=== PATIENT | male | born 1955 | race Caucasian/White ===

== ENCOUNTER 2018-03-05 09:34 | Inpatient (IN) | payer OTHER ==
[~2018-03-05] VITALS: Ht 180.3 cm; Wt 88.2 kg
[~2018-03-05 09:34] MED LIST: LYRICA75 MG PO; PERCOCET 325 MG1 TA2 PO; PERCOCET 325 MG1 TAB PO; SILENOR3 MG PO
--- NOTE | 2018-03-05 09:57 | ED GI/GU/ABDOMINAL COMPLAINT ---
History of Present Illness General Chief Complaint: General Adult Stated Complaint: SIB DR NICK FOR GENERALIZED WEAKNESS, PAIN Source: patient, family Exam Limitations: no limitations Vital Signs & Intake/Output Vital Signs & Intake/Output Vital Signs Date Time Temp Pulse Resp B/P B/P Pulse O2 O2 Flow FiO2 Mean Ox Delivery Rate 03/05 1503 98.0 65 18 142/80 100 Room Air 03/05 1345 98.6 51 18 142/88 98 Room Air 03/05 1138 97.7 65 18 160/77 100 Room Air 03/05 1012 98 Room Air 03/05 0948 98.6 81 15 130/90 99 Room Air Room Air Allergies Coded Allergies: No Known Allergies (03/05/18) Reconcile Medications Amlodipine Besylate 5 MG TABLET 1 TAB PO QPM HEART (Reported) Atorvastatin Calcium 20 MG TABLET 1 TAB PO DAILY CHOLESTEROL (Reported) Gabapentin 300 MG CAPSULE 1 CAP PO QPM SLEEP (Reported) Metformin HCl 500 MG TABLET 2 TAB PO DAILY DIABETES (Reported) Metformin HCl 500 MG TABLET 1 TAB PO QPM DIABETES (Reported) Zolpidem Tartrate 10 MG TABLET 1 TAB PO QPM SLEEP (Reported) Triage Note: PT SENT TO ED BY DR. NICK FOR LLQ ABD PAIN THAT RADIATES UP ABD. PT NOTED TO BE UNCOMFORTABLE IN TRIAGE AND MOANING. REPORTS 15 DAILY EPISODES OF DIARRHEA SINCE MONDAY. REPORTS SOME NAUSEA/VOMITING. Triage Nurses Notes Reviewed? yes Onset: Gradual Duration: week(s): Timing: recent history Quality/Severity: severe Severity Numbers: 10 Location: left lower quadrant HPI: 62-year-old male with history of hypertension, diabetes sent in by primary care doctor for evaluation of abdominal pain. Patient reports one week history of severe left lower quadrant abdominal pain. Abdominal pain described as left lower quadrant, radiating towards periumbilical area, constant. Patient reports associated nausea with vomiting episodes a few days ago. He also reports nonbloody diarrhea, initially having 10-15 episodes of diarrhea per day however recently has had 1-2 episodes per day, last episode of diarrhea yesterday. Patient reports lack of appetite and diminished PO intact since symptoms began. He has no history of a similar pain in the past. Patient denies chest pain, dyspnea, fevers, chills. (Vickie IGLESIAS,Kelsi Reaves) Past History Travel History Traveled to [place] past 21 day No Medical History Any Pertinent Medical History? see below for history Neurological: NONE EENT: NONE Cardiovascular: hypertension, hyperlipidemia Respiratory: NONE Gastrointestinal: NONE Hepatic: NONE Renal: NONE Musculoskeletal: NONE Psychiatric: NONE Endocrine: TYPE II DM Tetanus Vaccine: 02/04/13 Surgical History Surgical History: hernia repair-inguinal (left) Psychosocial History What is your primary language Citizen Of [place] Tobacco Use: Quit >30 days ago Family History Hx Contributory? No (Kelsi Schulte) Review of Systems Review of Systems Constitutional: Reports: no symptoms. EENTM: Reports: no symptoms. Respiratory: Reports: no symptoms. Cardiovascular: Reports: no symptoms. GI: Reports: see HPI. Genitourinary: Reports: no symptoms. Musculoskeletal: Reports: no symptoms. Skin: Reports: no symptoms. Neurological/Psychological: Reports: no symptoms. Hematologic/Endocrine: Reports: no symptoms. Immunologic/Allergic: Reports: no symptoms. All Other Systems: Reviewed and Negative (Kelsi Schulte) Physical Exam Physical Exam General Appearance: well developed/nourished, no apparent distress, alert, awake Head: atraumatic, normal appearance Eyes: Bilateral: normal appearance. Ears, Nose, Throat, Mouth: hearing grossly normal Neck: normal inspection, supple, full range of motion Respiratory: normal breath sounds, no respiratory distress, lungs clear Cardiovascular: regular rate/rhythm Gastrointestinal: normal bowel sounds, soft, LLQ tenderness with gaurding Back: normal inspection, normal range of motion Extremities: normal range of motion Neurologic/Psych: awake, alert, oriented x 3 Skin: intact, normal color, warm/dry Core Measures ACS in differential dx? No Sepsis Present: No Sepsis Focused Exam Completed? No (Kelsi Schulte) Progress Differential Diagnosis: appendicitis, bowel obstruction, diverticulitis, hernia, ischemic bowel, peptic ulcer, perforated viscous, SBO, ureterolithiasis, UTI/ pyelo, abscess Plan of Care: Orders Procedure Date/time Status CBC WITHOUT DIFFERENTIAL 03/06 600 Active BASIC ELECTROLYTES PLUS BUN&CR 03/06 600 Active Clear Liquid Diet 03/05 D Active BASIC ELECTROLYTES PLUS BUN&CR 03/05 2000 Active Weight 03/05 1521 Active Teach/Educate 03/05 152 Active Pain Treatment and Response 03/05 152 Active Nutritional Intake, Monitor 03/05 152 Active Isolation 03/05 152 Active Patient Care Conference 03/05 1521 Active Pathway - chart 03/05 1357 Active House Staff 03/05 1357 Active Patient Data 03/05 1357 Active BASIC ELECTROLYTES PLUS BUN&CR 03/05 1357 Complete Code Status 03/05 1357 Active Patient Data 03/05 1243 Active OXYGEN SETUP (GEN) 03/05 1235 Active Saline Lock 03/05 1235 Active Admit to inpatient 03/05 1235 Active Vital Signs 03/05 1235 Active Activity/Ambulation 03/05 1235 Active Code Status 03/05 1235 Complete TROPONIN LEVEL 03/05 1230 Complete EKG 03/05 1230 Active BLOOD CULTURE 03/05 1207 Active Add-on Test (ER Only) 03/05 1153 Active Add-on Test (ER Only) 03/05 1032 Active URINALYSIS 03/05 1032 Complete LIPASE 03/05 1014 Complete LACTIC ACID 03/05 1014 Complete AMYLASE 03/05 1014 Complete Intake & Output 03/05 1012 Active TROPONIN LEVEL 03/05 0957 Complete COMPREHENSIVE METABOLIC PANEL 03/05 0957 Complete CBC WITHOUT DIFFERENTIAL 03/05 0957 Complete EKG 03/05 0957 Active Telemetry/[place] 03/05 UNK Active Nursing Misc 03/05 UNK Active FingerStick- Glucose 03/05 UNK Active Current Medications Sig/Ana Start time Last Medication Dose Stop Time Status Admin Amlodipine Besylate 5 MG QPM 08/ 2100 AC (Norvasc) Gabapentin 300 MG QPM / 2100 AC (Neurontin) Insulin Human Regular 0 AT BEDTIME 03/05 2100 AC (NovoLIN R) Zolpidem Tartrate 10 MG QPM 08/ 2100 AC (Ambien) Ampicillin Sodium/ 3,000 MG Q6 / 1800 AC Sulbactam Sodium (Unasyn) Sodium Chloride 100 ML (Normal Saline 0.9%) Atorvastatin Calcium 20 MG 1700 08 1700 AC (Lipitor) Insulin Human Regular 0 TIDAC 03/05 1700 AC (NovoLIN R) Hydromorphone HCl 1 MG Q4P PRN 03/05 1445 AC 03/05 (Dilaudid) 1451 Acetaminophen 500 MG Q6P PRN 03/05 1400 AC (Tylenol) Morphine Sulfate 4 MG Q4P PRN 08 1400 AC 03/05 (MORPHINE SULFATE) 1424 Sodium Chloride 1,000 ML .Q10H 03/05 1400 AC 03/05 (Normal Saline 0.9%) 1410 Enoxaparin Sodium 40 MG DAILY 03/05 1353 AC (Lovenox) Laboratory Tests 03/05/18 1459: Anion Gap 11, Estimated GFR > 60, BUN/Creatinine Ratio 15.7 03/05/18 1220: Troponin I 0.03 03/05/18 1142: Urine Color YEL, Urine Clarity CLEAR, Urine pH 6.5, Ur Specific Velpen <= 1.005 , Urine Protein NEG, Urine Ketones NEG, Urine Nitrite NEG, Urine Bilirubin NEG, Urine Urobilinogen 0.2, Ur Leukocyte Esterase NEG, Ur Microscopic EXAM NOT REQUIRED, Urine Hemoglobin NEG, Urine Glucose NEG 03/05/18 1014: Anion Gap 10, Estimated GFR > 60, BUN/Creatinine Ratio 13.3, Glucose 138 H, Lactic Acid 1.4, Calcium 8.6, Total Bilirubin 0.8, AST 18, ALT 41, Alkaline Phosphatase 81, Troponin I 0.02, Total Protein 6.5, Albumin 3.8, Globulin 2.7, Albumin/Globulin Ratio 1.4, Amylase 45, Lipase 503 H, CBC w Diff NO MAN DIFF REQ, RBC 4.96, MCV 86.6, MCH 28.9, MCHC 33.3, RDW 12.9, MPV 8.1, Gran % 75.1, Lymphocytes % 13.7 L, Monocytes % 9.7 H, Eosinophils % 1.3, Basophils % 0.2, Absolute Granulocytes 8.8 H, Absolute Lymphocytes 1.6, Absolute Monocytes 1.1 H, Absolute Eosinophils 0.2, Absolute Basophils 0 Microbiology 03/05 1235 BLOOD: Blood Culture - RECD 03/05 1220 BLOOD: Blood Culture - RECD The patient has nonspecific minimal ST depressions in lateral leads, slight change compared to previous EKG. Will re evaluated with repeat EKG and troponin in [address] scan and chemistry panel are pending. Labs show hypokalemia, patient medicated with IV and oral potassium. CT scan shows diverticulitis without other acute complication. Patient is not tolerating PO at home, he has electrolyte abnormality with EKG changes. This patient requires IV antibiotics, IV fluids, potassium replacement, telemetry monitoring, repeat EKGs and troponins. Dr. Jones spoke with Dr. Munoz regarding telemetry admission. Diagnostic Imaging: Viewed by Me: CT Scan. Discussed w/RAD: CT Scan. Radiology Impression: PATIENT: TIERRA STEVEN PRESENT AGE: 62 PATIENT ACCOUNT NO: [id number] : 55 LOCATION: [facility] ORDERING PHYSICIAN: Kelsi IGLESIAS SERVICE DATE: 03/05/18 EXAM TYPE: CAT - CT ABD & PELVIS W IV CONTRAST EXAMINATION: CT ABDOMEN AND PELVIS WITH CONTRAST CLINICAL INFORMATION: Left lower abdominal pain and diarrhea. COMPARISON: 08/11/2014 TECHNIQUE: Multidetector volumetric imaging was performed of the abdomen and pelvis following IV administration of 95 mL of Optiray 320 intravenous contrast. Sagittal and coronal reformatted images were obtained on the technologist's workstation. DLP: 491 mGy-cm FINDINGS: LUNG BASES: Atherosclerotic calcification of the visualized right coronary artery. No acute findings in the examined lung bases. No pericardial or pleural effusion. LIVER, GALLBLADDER, AND BILIARY TREE: Diffuse hepatic steatosis without focal lesion or intrahepatic bile duct dilatation. The gallbladder is normal; no radiopaque gallstones, wall thickening or pericholecystic inflammatory changes. No intrahepatic or extrahepatic bile duct dilatation. PANCREAS: [id number] atrophy and partial fatty replacement of the pancreas. No pancreatic ductal dilatation. Anterior to the pancreatic tail, there is mild fat stranding. No peripancreatic fluid collection. SPLEEN: Unremarkable. ADRENAL GLANDS: Unremarkable. KIDNEYS AND URETERS: The kidneys have normal size, shape, and attenuation. No hydroureteronephrosis, urolithiasis or perinephric stranding. BLADDER: Unremarkable. BOWEL AND PERITONEUM: Loops of bowel are normal in caliber. Appendix is normal. Pancolonic diverticulosis. Mild fat stranding is seen adjacent to a diverticulum of the sigmoid colon, consistent with mild diverticulitis. No abscess. ABDOMINAL WALL: No acute findings. Again noted is the fat-containing left inguinal hernia. LYMPH NODES: No pathologic sized lymph nodes in the abdomen or pelvis. No inguinal lymphadenopathy. VASCULAR: Atherosclerotic calcification of the abdominal aorta without aneurysm. Inferior vena cava is normal. PELVIC: Prostate gland is unremarkable. No pelvic mass or free fluid. MUSCULOSKELETAL: Mild dextroscoliosis of the chronically degenerated lumbar spine. 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 No aggressive osseous lesions. IMPRESSION: - Pancolonic diverticulosis. - Acute, mild diverticulitis of the sigmoid colon. - Mild fat stranding anterior to the pancreatic tail is a subtle finding requiring clinical and/or laboratory correlation. Mild pancreatitis confined to the pancreatic tail is possible (i.e. , low suspicion). - Diffuse hepatic steatosis. - Fat-containing left inguinal hernia is unchanged. DICTATED BY: Lopez Dominguez MD DATE/TIME DICTATED:03/05/181129 PASTING INSPECTOR:SENIA DATE/TIME TRANSCRIBED:03/05/181129 CONFIDENTIAL, DO NOT COPY WITHOUT APPROPRIATE AUTHORIZATION. <Electronically signed in Other Vendor System> SIGNED BY: Lopez Dominguez MD 03/05/18 1146 Initial ED EKG: sinus rhythm @71bpm, nonspecific ST changes Prior EKG: changed (08/11/14) (Kelsi Schulte) Departure Departure Disposition: STILL A PATIENT Condition: Stable Clinical Impression Primary Impression: Diverticulitis Secondary Impressions: Abdominal pain, Acute electrocardiogram changes, Hypokalemia Referrals: Joana MARINO,Austin Gilbert (PCP/Family) Departure Forms: Customer Survey General Discharge Information Admission Note Spoke With: Bia Munoz MD Documentation of Exam: Documentation of any treatments & extenuating circumstances including Concerns Regarding Discharge (functional status, medication knowledge or non-compliance, living conditions, etc.) that warrant an admission rather than observation: [ acute diverticulitis requiring IV antibiotics, hypokalemia with EKG changes requiring telemetry monitoring, trend EKGs and troponins, IV fluids, electrolyte replacement, this patient is not tolerating PO and requires IV pain control, premature discharge medically unsafe] (Kelsi Schulte) PA/POLICE DETECTIVE Co-Sign Statement Statement: ED Attending supervision documentation- x I saw and evaluated the patient. I have also reviewed all the pertinent lab results and diagnostic results. I agree with the findings and the plan of care as documented in the PA's/POLICE DETECTIVE's documentation. Abdominal pain, anorexia, weakness with diverticulitis, elevated lipase, dehydration, hypokalemia with ekg changes [] I have reviewed the ED Record and agree with the PA's/POLICE DETECTIVE's documentation. [] Additions or exceptions (if any) to the PAs/POLICE DETECTIVE's note and plan are summarized below: [] (Karen MARNIO,Paul)
[2018-03-05 10:22] LABS: ABSOLUTE BASOPHIL COUNT 0 /CUMM (0.0-0.2); ABSOLUTE EOSINOPHIL COUNT 0.2 /CUMM (0.0-0.7); ABSOLUTE GRANULOCYTE CT 8.8 /CUMM (1.4-6.5); ABSOLUTE LYMPH COUNT 1.6 /CUMM (1.2-3.4); ABSOLUTE MONOCYTE COUNT 1.1 /CUMM (0.10-0.60); BASOPHIL % 0.2 % (0.0-2.0); EOSINOPHIL % 1.3 % (0-5); GRANULOCYTE % 75.1 % (42.2-75.2); MEAN CORPUSCULAR HGB 28.9 PG (27.0-31.0); MEAN CORPUSCULAR HGB CONC 33.3 G/DL (33.0-37.0); MEAN CORPUSCULAR VOLUME 86.6 FL (80.0-94.0); MEAN PLATELET VOLUME 8.1 FL (7.4-10.4); PLATELET COUNT 404 /CUMM (130-400); RBC DISTRIBUTION WIDTH 12.9 % (11.5-14.5); RED BLOOD CELL CT 4.96 /CUMM (4.70-6.10); WHITE BLOOD CELL COUNT 11.7 /CUMM (4.8-10.8)
[2018-03-05] MEDS ORDERED: AMLODIPINE BESYL5 M1 PO (10:33)
[2018-03-05] MEDS ORDERED: GABAPENTIN300 M2 PO (10:33)
[2018-03-05] MEDS ORDERED: ZOLPIDEM TARTRA10 M1 PO (10:33)
[2018-03-05] MEDS ORDERED: METFORMIN HCL500 M3 PO ×2 (10:34)
[2018-03-05] MEDS ORDERED: ATORVASTATIN CA20 M1 PO (10:34)
--- NOTE | 2018-03-05 11:46 | CT SCAN REPORT ---
EXAMINATION: CT ABDOMEN AND PELVIS WITH CONTRAST CLINICAL INFORMATION: Left lower abdominal pain and diarrhea. COMPARISON: 08/11/2014 TECHNIQUE: Multidetector volumetric imaging was performed of the abdomen and pelvis following IV administration of 95 mL of Optiray 320 intravenous contrast. Sagittal and coronal reformatted images were obtained on the technologist's workstation. DLP: 491 mGy-cm FINDINGS: LUNG BASES: Atherosclerotic calcification of the visualized right coronary artery. No acute findings in the examined lung bases. No pericardial or pleural effusion. LIVER, GALLBLADDER, AND BILIARY TREE: Diffuse hepatic steatosis without focal lesion or intrahepatic bile duct dilatation. The gallbladder is normal; no radiopaque gallstones, wall thickening or pericholecystic inflammatory changes. No intrahepatic or extrahepatic bile duct dilatation. PANCREAS: [id number] atrophy and partial fatty replacement of the pancreas. No pancreatic ductal dilatation. Anterior to the pancreatic tail, there is mild fat stranding. No peripancreatic fluid collection. SPLEEN: Unremarkable. ADRENAL GLANDS: Unremarkable. KIDNEYS AND URETERS: The kidneys have normal size, shape, and attenuation. No hydroureteronephrosis, urolithiasis or perinephric stranding. BLADDER: Unremarkable. BOWEL AND PERITONEUM: Loops of bowel are normal in caliber. Appendix is normal. Pancolonic diverticulosis. Mild fat stranding is seen adjacent to a diverticulum of the sigmoid colon, consistent with mild diverticulitis. No abscess. ABDOMINAL WALL: No acute findings. Again noted is the fat-containing left inguinal hernia. LYMPH NODES: No pathologic sized lymph nodes in the abdomen or pelvis. No inguinal lymphadenopathy. VASCULAR: Atherosclerotic calcification of the abdominal aorta without aneurysm. Inferior vena cava is normal. PELVIC: Prostate gland is unremarkable. No pelvic mass or free fluid. MUSCULOSKELETAL: Mild dextroscoliosis of the chronically degenerated lumbar spine. 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 No aggressive osseous lesions. IMPRESSION: - Pancolonic diverticulosis. - Acute, mild diverticulitis of the sigmoid colon. - Mild fat stranding anterior to the pancreatic tail is a subtle finding requiring clinical and/or laboratory correlation. Mild pancreatitis confined to the pancreatic tail is possible (i.e., low suspicion). - Diffuse hepatic steatosis. - Fat-containing left inguinal hernia is unchanged.
--- NOTE | 2018-03-05 13:02 | History & Physical ---
Michelle Beebe MD 03/05/18 1301: General Information and HPI MD Statement: I have seen and personally examined TIERRA STEVEN and documented this H&P. The patient is a 62 year old M who presented with a patient stated chief complaint of abdominal pain Source of Information: patient, old records Exam Limitations: no limitations History of Present Illness: This is a 62-year-old male with a past medical history significant for diabetes with peripheral neuropathy, hypertension, hyperlipidemia, that was sent in by his PCP Dr. Contreras for complaints of severe abdominal pain, nausea, vomiting, and diarrhea of about 1 week's duration. His complaints began on February 28 when he stayed home from work with severe abdominal pain and nausea/vomiting/ diarrhea. He tried Peptobismal, farideh grupo, and Imodium but states that they only helped a little bit. His his symptoms have continued on and off until today. The patient states that the abdominal pain is constant and is located in the lower left quadrant, but that it radiates upwards to the umbilicus. In the beginning he was having about 15 episodes daily of diarrhea but now it has abated a bit and he has 1-2 episodes daily. The last time the patient vomited was a few days back but he has remained nauseous. His diarrhea and vomitus are nonbloody. The last time he had an episode of diarrhea was yesterday. The patient has been barely eating since his symptoms started. He has never had symptoms like this before. He states that the pain was too severe this morning so he decided to go to Dr. Bernard who sent him here. The patient has never had a colonoscopy but has done fecal occult blood testing with his PCP, has been negative each time. The patient has had no family history of any abdominal issues. The patient also had a recent fall down a few stairs about 4 days ago. He states that he got up from bed, felt a bit "foggy" before attempting the stairs and ultimately fell. He denies any head strike, seizure activity, loss of consciousness. He did sustain a left arm contusion but otherwise was unharmed. At the time of interview, the patient states that he did not feel nauseous after receiving Zofran but did feel "queasy" after not having eaten much for the preceding week. The patient also stated during interview that he felt "very anxious". However he does not have any issues with anxiety usually and does not take psychiatrist or take any psychotropic medications. He does admit to some anxiety in healthcare situations and last needed an antianxiety medication before he got an MRI secondary to claustrophobia. The patient denies any chest pain, shortness of breath, fever, rigors, chills. He traveled 2 months ago to [place] where he worked for some time for the [employer]. The patient normally works at [employer]. Notes no occupational exposures. The patient lives nearby with his . He smoked a couple cigarettes a day in his 20s. He denies any recent alcohol use. He admits to a remote use of drugs when he was young. Allergies/Medications Allergies: Coded Allergies: No Known Allergies (03/05/18) Home Med list Amlodipine Besylate 5 MG TABLET 1 TAB PO QPM HEART (Reported) Atorvastatin Calcium 20 MG TABLET 1 TAB PO DAILY CHOLESTEROL (Reported) Gabapentin 300 MG CAPSULE 1 CAP PO QPM SLEEP (Reported) Metformin HCl 500 MG TABLET 2 TAB PO DAILY DIABETES (Reported) Metformin HCl 500 MG TABLET 1 TAB PO QPM DIABETES (Reported) Zolpidem Tartrate 10 MG TABLET 1 TAB PO QPM SLEEP (Reported) Compliance With Home Meds: GOOD Past History Travel History Traveled to [facility] past 21 day No Medical History Neurological: NONE EENT: NONE Cardiovascular: hypertension, hyperlipidemia Respiratory: NONE Gastrointestinal: NONE Hepatic: NONE Renal: NONE Musculoskeletal: NONE Psychiatric: NONE Endocrine: TYPE II DM Tetanus Vaccine: 02/04/13 Surgical History Surgical History: hernia repair-inguinal (left) Past Family/Social History Family History Relations & Conditions if any FATHER FH: heart attack, Onset: 50-60. Psychosocial History Who Do You Live With? spouse Primary Language: Arabic Smoking Status: Former Smoker ETOH Use: denies use Illicit Drug Use: denies illicit drug use Review of Systems Review of Systems Constitutional: Reports: malaise, weakness. EENTM: Reports: no symptoms. Cardiovascular: Reports: no symptoms. Respiratory: Reports: no symptoms. GI: Reports: abdominal pain, diarrhea, nausea, vomiting. Genitourinary: Reports: no symptoms. Musculoskeletal: Reports: no symptoms. Skin: Reports: no symptoms. Neurological/Psychological: Reports: no symptoms. Hematologic/Endocrine: Reports: no symptoms. Immunologic/Allergic: Reports: no symptoms, see HPI, splenectomy, HIV/AIDS, lymphadenopathy, other. Exam & Diagnostic Data Last 24 Hrs of Vital Signs/I&O Vital Signs Date Time Temp Pulse Resp B/P B/P Pulse O2 O2 Flow FiO2 Mean Ox Delivery Rate 03/05 1503 98.7 118 20 140/110 92 Room Air 03/05 1345 98.6 51 18 142/88 98 Room Air 03/05 1138 97.7 65 18 160/77 100 Room Air 03/05 1012 98 Room Air 03/05 0948 98.6 81 15 130/90 99 Room Air Room Air Intake & Output 03/05 1600 03/05 0800 03/05 0000 Intake Total 0 Output Total Balance 0 Intake, Oral 0 Physical Exam General Appearance Alert, Oriented X3, Cooperative, Mild Distress Skin No Rashes, No Breakdown, No Significant Lesion Skin Temp/Moisture Exam: Warm/Dry Sepsis Skin Exam (color): Normal for Ethnicity HEENT Atraumatic, EOMI, Mucous Membr. moist/pink Cardiovascular Regular Rate, Normal S1, Normal S2, No Murmurs Lungs Clear to Auscultation, Normal Air Movement Abdomen Normal Bowel Sounds, Soft, tenderness most on llq. tenderness in llq when rlq is palpated. no rebound tenderness. no rigidity to abdomen. Neurological Normal Gait Extremities No Clubbing, No Cyanosis, No Edema, Normal Pulses Vascular Normal Pulses, Pulses Symmetrical Last 24 Hrs of Labs/Baron: Laboratory Tests 03/05/18 1459: Sodium Pending, Potassium Pending, Chloride Pending, Carbon Dioxide Pending, Anion Gap Pending, BUN Pending, Creatinine Pending, BUN/Creatinine Ratio Pending 03/05/18 1220: Troponin I 0.03 03/05/18 1142: Urine Color YEL, Urine Clarity CLEAR, Urine pH 6.5, Ur Specific Mousie <= 1.005 , Urine Protein NEG, Urine Ketones NEG, Urine Nitrite NEG, Urine Bilirubin NEG, Urine Urobilinogen 0.2, Ur Leukocyte Esterase NEG, Ur Microscopic EXAM NOT REQUIRED, Urine Hemoglobin NEG, Urine Glucose NEG 03/05/18 1014: Anion Gap 10, Estimated GFR > 60, BUN/Creatinine Ratio 13.3, Glucose 138 H, Lactic Acid 1.4, Calcium 8.6, Total Bilirubin 0.8, AST 18, ALT 41, Alkaline Phosphatase 81, Troponin I 0.02, Total Protein 6.5, Albumin 3.8, Globulin 2.7, Albumin/Globulin Ratio 1.4, Amylase 45, Lipase 503 H, CBC w Diff NO MAN DIFF REQ, RBC 4.96, MCV 86.6, MCH 28.9, MCHC 33.3, RDW 12.9, MPV 8.1, Gran % 75.1, Lymphocytes % 13.7 L, Monocytes % 9.7 H, Eosinophils % 1.3, Basophils % 0.2, Absolute Granulocytes 8.8 H, Absolute Lymphocytes 1.6, Absolute Monocytes 1.1 H, Absolute Eosinophils 0.2, Absolute Basophils 0 Microbiology 03/05 1235 BLOOD: Blood Culture - RECD 03/05 1220 BLOOD: Blood Culture - RECD Assessment/Plan Assessment: This is a 62-year-old male with a past medical history significant for diabetes with peripheral neuropathy, hypertension, hyperlipidemia, that was sent in by his PCP Dr. Bernard for complaints of severe abdominal pain, nausea, vomiting, and diarrhea of about 1 week's duration. The patient has never had abdominal issues in the past. He has never had a colonoscopy and has had fecal occult blood testing with his PCP since he was aged 50. He has no family history of gastroenterologic issues. The patient has had a poor appetite for the past week as well and did have a recent fall after he got up too quickly from bed and began descending the stairs. In the ED, vitals were temperature 98.6, heart rate 81, respiratory rate 15, blood pressure 130/80 which increased later to 160/77, 99% oxygen saturation on room air. EKG showed normal sinus rhythm at a rate of 71 with T-wave flattening in all leads. Patient's labs showed a WBC count of 11.7, hemoglobin of 14.3, platelets 404, sodium 128, potassium 2.7, lactic acid normal, troponin 0.02, lipase 503, normal urinalysis. CT abdomen and pelvis showed pancolonic diverticulitis with mild pancreatitis evidence in the tail but low suspicion, diffuse hepatic steatosis, fat-containing left inguinal hernia. In the ED the patient received 1 dose of Toradol 30 mg for the pain, Dilaudid 1 mg, morphine 4 mg 2 doses, a dose of Unasyn 3 g, Zofran 4 mg for his nausea, normal saline 1 L , potassium 50 mEq. Assessment -Nausea, vomiting, diarrhea secondary to pancolonic diverticulitis -T wave flattening secondary to hypokalemia -Past medical history diabetes, hypertension, hyperlipidemia Plan -Admit patient to telemetry for evaluation of his pancolonic diverticulitis and cardiac monitoring in the setting of T-wave flattening -Begin fluids normal saline at a rate of 100 -Patient has been given about 50 mEq of potassium, we will redo BEP now and at 8 PM -Start patient on clear liquids -Defer GI consults, patient may be able to follow-up outpatient -Follow second troponin and EKG and if again negative, no need for third set -Restart home medications amlodipine 5 mg, atorvastatin 20 mg, gabapentin 300 mg for neuropathy, zolpidem 10 mg for sleep. -Accu-Cheks and sliding scale insulin -Pain pathway with Tylenol 500 mg every 6 for mild pain, morphine 4 mg every 6 for moderate pain and Dilaudid 1 mg every 4 for severe pain -Give patient a small dose of 0.25 Xanax for his anxiety -Patient stated that he would like to be DNR/DNI -DVT prophylaxis As Ranked By This Provider Problem List: 1. Diverticulitis Core Measures/Misc (04/16) Acute Coronary Syndrome ACS Diagnosis: No Congestive Heart Failure Congestive Heart Failure Diagnosis No Cerebrovascular Accident CVA/TIA Diagnosis: No VTE (View Protocol) VTE Risk Factors Age>40 No Mechanical VTE Prophylaxis d/t Early Ambulation No VTE Pharm Prophylaxis d/t NA PharmProphylax ordered Sepsis (View protocol) Sepsis Present: No If YES complete Sepsis Event Note If YES complete Sepsis Event Note Donnie MARINO,[facility] 03/05/18 1605: Core Measures/Misc (04/16) Sepsis (View protocol) If YES complete Sepsis Event Note If YES complete Sepsis Event Note Attending MD Review Statement Attending Statement Attending MD Statement: examined this patient, discuss w/resident/PA/ASSISTANT PROFESSOR OF EDUCATION, agreed w/resident/PA/ASSISTANT PROFESSOR OF EDUCATION, reviewed EMR data (avail), discussed with nursing, reviewed images, amended to note Attending Assessment/Plan: 62-year-old male with past medical history significant for diabetes with peripheral neuropathy, hypertension, hyperlipidemia went to see his primary care doctor today because he was having symptoms of abdominal pain, nausea, vomiting and diarrhea for almost a week now. Patient felt so poor that he could not eat or drink much and he could not sleep. He was complaining of pain in the left side of his abdomen mainly in the left lower quadrant. Pain was described as constant severe pain that would keep him awake from sleep. He denies any hematemesis or any bright red blood per rectum. He was having vomiting and diarrhea all week long. He said that he has almost lost 19 pounds in the last week. He went to the primary care doctor today and he was told that he should go to the emergency room. Patient was still complaining of left-sided abdominal pain. He claims that pain medication helps some. He states that otherwise he is very healthy person and tries to follow healthy diet. He denies any eating out or eating anything unusual. He denies fevers or chills. In the emergency room patient was found to have severe hypokalemia, hyponatremia and also had some EKG changes which included flattened T waves. Vital Signs Date Time Temp Pulse Resp B/P B/P Pulse O2 O2 Flow FiO2 Mean Ox Delivery Rate 03/05 1503 98.0 65 18 142/80 100 Room Air 03/05 1345 98.6 51 18 142/88 98 Room Air 03/05 1138 97.7 65 18 160/77 100 Room Air 03/05 1012 98 Room Air 03/05 0948 98.6 81 15 130/90 99 Room Air Room Air on exam; aox3, nad. cv: s1,s2, rrr resp; clear abd; soft, tender in llq, bs+ ext; no edema Laboratory Tests 03/05 03/05 03/05 1459 1220 1142 Chemistry Sodium Pending Potassium Pending Chloride Pending Carbon Dioxide Pending Anion Gap Pending BUN Pending Creatinine Pending BUN/Creatinine Ratio Pending Troponin I (<0.11 ng/ml) 0.03 Urines Urine Color (YEL,AMB,STR) YEL Urine Clarity (CLEAR) CLEAR Urine pH (5.0 - 8.0) 6.5 Ur Specific Mousie (1.001 - 1.035) <= 1.005 Urine Protein (NEG,<30 MG/DL) NEG Urine Ketones (NEG) NEG Urine Nitrite (NEG) NEG Urine Bilirubin (NEG) NEG Urine Urobilinogen (0.1 - 1.0 EU/dl) 0.2 Ur Leukocyte Esterase (NEG) NEG Ur Microscopic EXAM NOT REQUIRED Urine Hemoglobin (NEG) NEG Urine Glucose (N MG/DL) NEG 03/05 1014 Chemistry Sodium (137 - 145 mmol/L) 128 L Potassium (3.5 - 5.1 mmol/L) 2.7 *L Chloride (98 - 107 mmol/L) 93 L Carbon Dioxide (22 - 30 mmol/L) 26 Anion Gap (5 - 16) 10 BUN (9 - 20 mg/dL) 12 Creatinine (0.7 - 1.2 mg/dL) 0.9 Estimated GFR (>60 ml/min) > 60 BUN/Creatinine Ratio (7 - 25 %) 13.3 Glucose (65 - 99 mg/dL) 138 H Lactic Acid (0.7 - 2.1 mmol/L) 1.4 Calcium (8.4 - 10.2 mg/dL) 8.6 Total Bilirubin (0.2 - 1.3 mg/dL) 0.8 AST (17 - 59 U/L) 18 ALT (21 - 72 U/L) 41 Alkaline Phosphatase (< 127 U/L) 81 Troponin I (<0.11 ng/ml) 0.02 Total Protein (6.3 - 8.2 g/dL) 6.5 Albumin (3.5 - 5.0 g/dL) 3.8 Globulin (1.9 - 4.2 gm/dL) 2.7 Albumin/Globulin Ratio (1.1 - 2.2 %) 1.4 Amylase (30 - 110 U/L) 45 Lipase (23 - 300 U/L) 503 H Hematology CBC w Diff NO MAN DIFF REQ WBC (4.8 - 10.8 /CUMM) 11.7 H RBC (4.70 - 6.10 /CUMM) 4.96 Hgb (14.0 - 18.0 G/DL) 14.3 Hct (42 - 52 %) 43.0 MCV (80.0 - 94.0 FL) 86.6 MCH (27.0 - 31.0 PG) 28.9 MCHC (33.0 - 37.0 G/DL) 33.3 RDW (11.5 - 14.5 %) 12.9 Plt Count (130 - 400 /CUMM) 404 H MPV (7.4 - 10.4 FL) 8.1 Gran % (42.2 - 75.2 %) 75.1 Lymphocytes % (20.5 - 51.1 %) 13.7 L Monocytes % (1.7 - 9.3 %) 9.7 H Eosinophils % (0 - 5 %) 1.3 Basophils % (0.0 - 2.0 %) 0.2 Absolute Granulocytes (1.4 - 6.5 /CUMM) 8.8 H Absolute Lymphocytes (1.2 - 3.4 /CUMM) 1.6 Absolute Monocytes (0.10 - 0.60 /CUMM) 1.1 H Absolute Eosinophils (0.0 - 0.7 /CUMM) 0.2 Absolute Basophils (0.0 - 0.2 /CUMM) 0 EKG shows sinus rhythm with some flattening of the T waves which is new compared to his baseline. CT abd/pelvis: IMPRESSION: - Pancolonic diverticulosis. - Acute, mild diverticulitis of the sigmoid colon. - Mild fat stranding anterior to the pancreatic tail is a subtle finding requiring clinical and/or laboratory correlation. Mild pancreatitis confined to the pancreatic tail is possible (i.e., low suspicion). - Diffuse hepatic steatosis. - Fat-containing left inguinal hernia is unchanged. A/P; 62-year-old male with past medical history significant for diabetes with peripheral neuropathy, hypertension, hyperlipidemia, admitted to telemetry floor with acute diverticulitis, abdominal pain with nausea vomiting and diarrhea, dehydration leading to hyponatremia as well as hypokalemia. Patient also had abnormal EKG which included flattened T waves. Patient will be hydrated with IV fluids. Potassium will be repleted. Check frequent BEPs to make sure hyponatremia is not corrected very quickly. We will start the patient on gentle IV hydration. Will check stool studies including stool for C. difficile and stool culture. Patient can be treated symptomatically with antiemetics for nausea vomiting. We will continue the antibiotics for now. He might need outpatient GI evaluation. If on the other hand patient does not improve or get worse than inpatient evaluation will be obtained. Patient will be continued on his home meds except for oral hypoglycemics. He should be started on sliding scale insulin. Pharmacologic dvt prophylaxis.
[2018-03-05 15:03] VITALS: BP 140/110; BP 142/80
[2018-03-05 22:23] VITALS: BP 158/80
[2018-03-06 06:52] VITALS: BP 160/84
--- NOTE | 2018-03-06 07:21 | PN- Housestaff ---
Concepción MARINO,Michelle 03/06/18 0721: Subjective Follow-up For: diverticulitis Tele-Events Since Last Visit: no events Subjective: Patient seen and examined. He states that he is very anxious this morning. He states that he has less abdominal pain and has not vomited or had any diarrhea. His vital signs are stable overnight. He is asking if he can have his diet advanced. He denies any chest pain or shortness of breath. No telemetry events overnight. Review of Systems Constitutional: Reports: no symptoms. Cardiovascular: Reports: no symptoms. Respiratory: Reports: no symptoms. Gastrointestinal: Reports: abdominal pain. Musculoskeletal: Reports: no symptoms. Neurological/Psychological: Reports: no symptoms. Hematologic/Endocrine: Reports: no symptoms. Objective Last 24 Hrs of Vital Signs/I&O Vital Signs Date Time Temp Pulse Resp B/P B/P Pulse O2 O2 Flow FiO2 Mean Ox Delivery Rate 03/06 0652 98.4 64 18 160/84 99 Room Air 03/05 2226 68 03/05 2223 98.4 57 18 158/80 98 Room Air 03/05 1503 98.0 65 18 142/80 100 Room Air 03/05 1345 98.6 51 18 142/88 98 Room Air / 1138 97.7 65 18 160/77 100 Room Air Intake & Output 03/06 1600 03/06 0800 03/06 0000 Intake Total 1120 840 Output Total Balance 1120 840 Intake, IV 920 440 Intake, Oral 200 400 Patient 202 lb Weight Weight Bed scale Measurement Method Physical Exam General Appearance: Alert, Oriented X3, Cooperative, No Acute Distress Skin: No Rashes, No Breakdown, No Significant Lesion Skin Temp/Moisture Exam: Warm/Dry HEENT: Atraumatic, PERRLA, EOMI Cardiovascular: Regular Rate, Normal S1, Normal S2, No Murmurs Lungs: Clear to Auscultation, Normal Air Movement Abdomen: Normal Bowel Sounds, Soft, No Hepatospenomegaly, tender to palpation especially on the left side Neurological: Normal Speech Extremities: No Clubbing, No Cyanosis, No Edema Vascular: Normal Pulses, Pulses Symmetrical Current Medications: Current Medications Sig/Ana Start time Last Medication Dose Route Stop Time Status Admin Acetaminophen 500 MG Q6P PRN 03/05 1400 AC PO Alprazolam 0.25 MG ONCE ONE 08/07 0930 DC 08 PO 03/06 0931 1033 Alprazolam 0 .STK-MED ONE 03/05 2226 DC PO Alprazolam 0.25 MG ONCE ONE 03/05 1400 DC 08 PO 08 1401 2227 Amlodipine Besylate 5 MG QPM 03/05 2100 AC 08 PO 2226 Ampicillin Sodium/ 3,000 MG Q6 03/05 1800 AC 03/06 Sulbactam Sodium IV 0621 Sodium Chloride 100 ML Ampicillin Sodium/ 3,000 MG ONCE ONE 03/05 1215 DC 08 Sulbactam Sodium IV 03/05 1244 1232 Sodium Chloride 100 ML Ampicillin Sodium/ 0 .STK-MED ONE 03/05 1215 DC Sulbactam Sodium .ROUTE Atorvastatin Calcium 20 MG 1700 03/05 1700 AC PO Enoxaparin Sodium 40 MG DAILY 03/05 1353 AC SC Gabapentin 300 MG QPM 03/05 2100 AC 03/05 PO 2227 Hydromorphone HCl 0 .STK-MED ONE 03/05 1825 DC .ROUTE Hydromorphone HCl 1 MG ONCE ONE 03/05 1645 DC 08 IV 03/05 1646 1645 Hydromorphone HCl 0 .STK-MED ONE 03/05 1448 DC .ROUTE Hydromorphone HCl 1 MG Q4P PRN 03/05 1445 AC 03/05 IV 2227 Hydromorphone HCl 1 MG ONCE ONE 03/05 1215 DC 08 IV 03/05 1216 1224 Hydromorphone HCl 0 .STK-MED ONE 03/05 1215 DC .ROUTE Insulin Human Regular 0 AT BEDTIME 03/05 2100 DC IV Insulin Human Regular 0 TIDAC 03/05 1700 AC SC Morphine Sulfate 4 MG Q4P PRN 03/05 1400 AC 08 IV 1424 Morphine Sulfate 4 MG ONCE ONE 03/05 1145 DC 08 IV 03/05 1146 1138 Morphine Sulfate 0 .STK-MED ONE 03/05 1137 DC .ROUTE Morphine Sulfate 4 MG ONCE ONE 03/05 1115 DC 03/05 IV 03/05 1116 1111 Morphine Sulfate 0 .STK-MED ONE 03/05 1110 DC .ROUTE Morphine Sulfate 4 MG ONCE ONE 03/05 1045 DC 03/05 IV 03/05 1046 1034 Potassium Chloride 40 MEQ ONCE ONE 03/06 0730 DC 08/ PO 03/06 0731 0815 Potassium Chloride 40 MEQ ONCE ONE 03/05 1830 DC 08/ PO 03/05 1831 1837 Potassium Chloride 0 .STK-MED ONE 03/05 1824 DC PO Potassium Chloride 40 MEQ ONCE ONE 03/05 1100 DC 08/ PO 03/05 1101 1111 Potassium Chloride 10 MEQ ONCE ONE 03/05 1100 DC 08/ IV 03/05 1101 1111 Potassium Chloride 0 .STK-MED ONE 03/05 1100 DC PO Sodium Chloride 1,000 ML .Q10H 03/05 1400 DC 08 IV 0033 Sodium Chloride 1,000 ML BOLUS ONE 03/05 1100 DC 08/ IV / 1159 1053 Sodium Chloride 1,000 ML BOLUS ONE 03/05 1015 DC 08/ IV 03/05 1114 1011 Zolpidem Tartrate 0 .STK-MED ONE 03/06 0013 DC PO Zolpidem Tartrate 10 MG QPM 03/05 2100 AC 03/06 PO 0033 Last 24 Hrs of Lab/Baron Results Last 24 Hrs of Labs/Mics: Laboratory Tests 03/06/18 0644: Anion Gap 8, Estimated GFR > 60, BUN/Creatinine Ratio 10.0, CBC w Diff NO MAN DIFF REQ, RBC 4.25 L, MCV 86.0, MCH 29.0, MCHC 33.8, RDW 12.8, MPV 8.6, Gran % 76.1 H, Lymphocytes % 13.2 L, Monocytes % 7.3, Eosinophils % 3.2, Basophils % 0.2, Absolute Granulocytes 6.6 H, Absolute Lymphocytes 1.2, Absolute Monocytes 0.6, Absolute Eosinophils 0.3, Absolute Basophils 0 03/05/18 1955: Anion Gap 8, Estimated GFR > 60, BUN/Creatinine Ratio 12.5 03/05/18 1459: Anion Gap 11, Estimated GFR > 60, BUN/Creatinine Ratio 15.7 03/05/18 1220: Troponin I 0.03 03/05/18 1142: Urine Color YEL, Urine Clarity CLEAR, Urine pH 6.5, Ur Specific Fabius <= 1.005 , Urine Protein NEG, Urine Ketones NEG, Urine Nitrite NEG, Urine Bilirubin NEG, Urine Urobilinogen 0.2, Ur Leukocyte Esterase NEG, Ur Microscopic EXAM NOT REQUIRED, Urine Hemoglobin NEG, Urine Glucose NEG Microbiology 03/05 1235 BLOOD: Blood Culture - RECD 03/05 1220 BLOOD: Blood Culture - RECD Assessment/Plan Assessment: This is a 62-year-old male with a past medical history significant for diabetes with peripheral neuropathy, hypertension, hyperlipidemia, that was sent in by his PCP Dr. Bernard for complaints of severe abdominal pain, nausea, vomiting, and diarrhea of about 1 week's duration. The patient has never had abdominal issues in the past. He has never had a colonoscopy and has had fecal occult blood testing with his PCP since he was aged 50. He has no family history of gastroenterologic issues. The patient has had a poor appetite for the past week as well and did have a recent fall after he got up too quickly from bed and began descending the stairs. In the ED, vitals were temperature 98.6, heart rate 81, respiratory rate 15, blood pressure 130/80 which increased later to 160/77, 99% oxygen saturation on room air. EKG showed normal sinus rhythm at a rate of 71 with T-wave flattening in all leads. Patient's labs showed a WBC count of 11.7, hemoglobin of 14.3, platelets 404, sodium 128, potassium 2.7, lactic acid normal, troponin 0.02, lipase 503, normal urinalysis. CT abdomen and pelvis showed pancolonic diverticulitis with mild pancreatitis evidence in the tail but low suspicion, diffuse hepatic steatosis, fat-containing left inguinal hernia. In the ED the patient received 1 dose of Toradol 30 mg for the pain, Dilaudid 1 mg, morphine 4 mg 2 doses, a dose of Unasyn 3 g, Zofran 4 mg for his nausea, normal saline 1 L , potassium 50 mEq. Assessment -Nausea, vomiting, diarrhea secondary to pancolonic diverticulitis -T wave flattening secondary to hypokalemia -Past medical history diabetes, hypertension, hyperlipidemia -Hemodilution Plan -Admit patient to telemetry for evaluation of his pancolonic diverticulitis and cardiac monitoring in the setting of T-wave flattening -Continue Unasyn 3g q6h -Stop fluids as patient tolerating PO and advance diet to full liquids -K this morning is 3.4, we will replete again -Hyponatremia, increasing Na, now at 135. -Defer GI consults, patient may be able to follow-up outpatient -Trops neg and EKGs unchanged, no indication of ACS, no events on tele, no cardiac or respiratory symptoms -Restarted home medications amlodipine 5 mg, atorvastatin 20 mg, gabapentin 300 mg for neuropathy, zolpidem 10 mg for sleep. -Accu-Cheks and sliding scale insulin -Pain pathway with Tylenol 500 mg every 6 for mild pain, morphine 4 mg every 6 for moderate pain and Dilaudid 1 mg every 4 for severe pain prn -Give patient small doses of 0.25 Xanax for his anxiety -Patient stated that he would like to be DNR/DNI -DVT prophylaxis Problem List: 1. Diverticulitis 2. Acute electrocardiogram changes 3. Hypokalemia Pain Ratin Pain Location: left abdomen Pain Goal: Pain 4 or less Pain Plan: morphine, dilaudid prn, tylenol Tomorrow's Labs & Rationales: sergei Ochoa MD,Nohelia 03/06/18 1504: Attending MD Review Statement Attending Statement Attending MD Statement: examined this patient, discuss w/resident/PA/QUALITY COORDINATOR, agreed w/resident/PA/QUALITY COORDINATOR, reviewed EMR data (avail) Attending Assessment/Plan: 62M PMH diabetes with peripheral neuropathy, hypertension, hyperlipidemia admitted with LLQ pain, worse when eating, with sigmoid diverticulitis on imaging and T-wave flattening on EKG. Patient still reports LLQ pain when eating Jello. 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 He denies chest pain, palpitations, fever, chills, nausea, vomiting, dysuria, loose stools. His WBC has improved from 11 to 8. 1. Acute sigmoid diverticulitis 2. Acute EKG changes Plan - Continue on telemetry - Continue Unasyn - Advance diet as tolerated - Cardiology consult - Continue home medications - DVT PPx
[2018-03-06 07:53] LABS: ABSOLUTE BASOPHIL COUNT 0 /CUMM (0.0-0.2); ABSOLUTE EOSINOPHIL COUNT 0.3 /CUMM (0.0-0.7); ABSOLUTE LYMPH COUNT 1.2 /CUMM (1.2-3.4); MEAN PLATELET VOLUME 8.6 FL (7.4-10.4)
[2018-03-06 08:13] LABS: ABSOLUTE GRANULOCYTE CT 6.6 /CUMM (1.4-6.5); ABSOLUTE MONOCYTE COUNT 0.6 /CUMM (0.10-0.60); BASOPHIL % 0.2 % (0.0-2.0); EOSINOPHIL % 3.2 % (0-5); GRANULOCYTE % 76.1 % (42.2-75.2); MEAN CORPUSCULAR HGB CONC 33.8 G/DL (33.0-37.0); PLATELET COUNT 303 /CUMM (130-400); RBC DISTRIBUTION WIDTH 12.8 % (11.5-14.5); RED BLOOD CELL CT 4.25 /CUMM (4.70-6.10); WHITE BLOOD CELL COUNT 8.7 /CUMM (4.8-10.8)
[2018-03-06 08:14] LABS: HEMATOCRIT 36.5 % (42-52)
[2018-03-06 14:10] VITALS: BP 140/80; BP 40/80
[2018-03-06 22:05] VITALS: BP 148/84
[2018-03-07 06:33] VITALS: BP 166/90
--- NOTE | 2018-03-07 07:59 | PN- Housestaff ---
Concepción MARINO,Michelle 03/07/18 0758: Subjective Follow-up For: Diverticulitis Subjective: Patient seen and examined. He states that he has continued left lower quadrant pain at a 9/10. He is tolerating his liquid diet and asks to be advanced to regular food. However as he is still complaining of 9/10 pain we will defer after we see how he tolerates lunch. His vitals are currently stable and he is slightly hypertensive at 166/90. The queasiness is subsiding. The patient denies any diarrhea, nausea vomiting, but does feel weakness. He has been ambulating about the floor. Review of Systems Constitutional: Reports: weakness. Cardiovascular: Reports: no symptoms. Respiratory: Reports: no symptoms. Gastrointestinal: Reports: abdominal pain. Genitourinary: Reports: no symptoms. Musculoskeletal: Reports: no symptoms. Skin: Reports: no symptoms. Neurological/Psychological: Reports: no symptoms. Objective Last 24 Hrs of Vital Signs/I&O Vital Signs Date Time Temp Pulse Resp B/P B/P Pulse O2 O2 Flow FiO2 Mean Ox Delivery Rate 03/07 0633 98.0 72 18 166/90 99 Room Air 03/06 2255 66 152/68 03/06 2205 98.2 78 18 148/84 99 03/06 1410 98.1 73 20 140/80 100 Room Air Intake & Output 03/07 1600 03/07 0800 03/07 0000 Intake Total 220 Output Total Balance 220 Intake, IV 100 Intake, Oral 120 Patient 206 lb Weight Physical Exam General Appearance: Alert, Oriented X3, Cooperative, No Acute Distress Skin: No Rashes, No Breakdown Sepsis Skin Exam (color): Normal for Ethnicity HEENT: Atraumatic, PERRLA, EOMI, Mucous Membr. moist/pink Cardiovascular: Regular Rate, Normal S1, Normal S2, No Murmurs Lungs: Clear to Auscultation, Normal Air Movement Abdomen: Normal Bowel Sounds, Soft, No Hepatospenomegaly, No Masses Neurological: Normal Gait, Normal Speech Extremities: No Clubbing, No Cyanosis, No Edema Current Medications: Current Medications Sig/Ana Start time Last Medication Dose Route Stop Time Status Admin Acetaminophen 500 MG Q6P PRN 03/05 1400 AC PO Alprazolam 0.25 MG TID PRN 03/06 1400 AC 03/06 PO 03/13 1359 2022 Amlodipine Besylate 5 MG QPM 03/05 2100 AC 03/06 PO 2255 Ampicillin Sodium/ 3,000 MG Q6 03/05 1800 AC 03/07 Sulbactam Sodium IV 0534 Sodium Chloride 100 ML Atorvastatin Calcium 20 MG 1700 03/05 1700 AC 03/06 PO 1803 Enoxaparin Sodium 40 MG DAILY 03/05 1353 AC SC Gabapentin 300 MG QPM 03/05 2100 AC 03/06 PO 2255 Hydromorphone HCl 1 MG Q4P PRN 03/05 1445 AC 03/07 IV 1033 Insulin Aspart 0 TIDAC 03/06 1700 AC SC Insulin Human Regular 0 TIDAC 03/05 1700 DC SC Morphine Sulfate 4 MG Q4P PRN 03/05 1400 AC 03/06 IV 1522 Ondansetron HCl 4 MG ONCE ONE 03/06 1730 DC IV 03/06 1731 Potassium Chloride 40 MEQ ONCE ONE 03/07 1130 DC PO 03/07 1131 Zolpidem Tartrate 10 MG QPM 03/05 2100 AC 03/06 PO 2255 Last 24 Hrs of Lab/Baron Results Last 24 Hrs of Labs/Mics: Laboratory Tests 03/07/18704: Anion Gap 10, Estimated GFR > 60, BUN/Creatinine Ratio 7.1, CBC w Diff NO MAN DIFF REQ, RBC 4.23 L, MCV 84.6, MCH 29.4, MCHC 34.8, RDW 12.9, MPV 8.8, Gran % 68.8, Lymphocytes % 16.4 L, Monocytes % 8.2, Eosinophils % 6.0 H, Basophils % 0.6, Absolute Granulocytes 4.9, Absolute Lymphocytes 1.2, Absolute Monocytes 0.6 , Absolute Eosinophils 0.4, Absolute Basophils 0 Assessment/Plan Assessment: This is a 62-year-old male with a past medical history significant for diabetes with peripheral neuropathy, hypertension, hyperlipidemia, that was sent in by his PCP Dr. Bernard for complaints of severe abdominal pain, nausea, vomiting, and diarrhea of about 1 week's duration. The patient has never had abdominal issues in the past. He has never had a colonoscopy and has had fecal occult blood testing with his PCP since he was aged 50. He has no family history of gastroenterologic issues. The patient has had a poor appetite for the past week as well and did have a recent fall after he got up too quickly from bed and began descending the stairs. In the ED, vitals were temperature 98.6, heart rate 81, respiratory rate 15, blood pressure 130/80 which increased later to 160/77, 99% oxygen saturation on room air. EKG showed normal sinus rhythm at a rate of 71 with T-wave flattening in all leads. Patient's labs showed a WBC count of 11.7, hemoglobin of 14.3, platelets 404, sodium 128, potassium 2.7, lactic acid normal, troponin 0.02, lipase 503, normal urinalysis. CT abdomen and pelvis showed pancolonic diverticulitis with mild pancreatitis evidence in the tail but low suspicion, diffuse hepatic steatosis, fat-containing left inguinal hernia. In the ED the patient received 1 dose of Toradol 30 mg for the pain, Dilaudid 1 mg, morphine 4 mg 2 doses, a dose of Unasyn 3 g, Zofran 4 mg for his nausea, normal saline 1 L , potassium 50 mEq. Assessment -Nausea, vomiting, diarrhea secondary to pancolonic diverticulitis -T wave flattening secondary to hypokalemia -Past medical history diabetes, hypertension, hyperlipidemia -Hemodilution Plan -Continue to monitor patient in telemetry for evaluation of his pancolonic diverticulitis and cardiac monitoring in the setting of T-wave flattening -Continue Unasyn 3g q6h -Stop fluids as patient tolerating PO and continue to monitor on full liquid diet and if he tolerates, can advance him to regular diet for dinner -K this morning is 3.3, we will replete again -Hyponatremia, increasing Na, now at 136. -Defer GI consult, patient may be able to follow-up outpatient -Trops neg and EKGs unchanged, no indication of ACS, no events on tele, no cardiac or respiratory symptoms -Continue home medications amlodipine 5 mg, atorvastatin 20 mg, gabapentin 300 mg for neuropathy, zolpidem 10 mg for sleep. -Accu-Cheks and sliding scale insulin -Pain pathway with Tylenol 500 mg every 6 for mild pain, morphine 4 mg every 6 for moderate pain and Dilaudid 1 mg every 4 for severe pain prn -Give patient small doses of 0.25 Xanax for his anxiety -Patient stated that he would like to be DNR/DNI -DVT prophylaxis Problem List: 1. Diverticulitis 2. Acute electrocardiogram changes Pain Ratin Pain Location: LLQ Pain Goal: Remain pain free Pain Plan: PATHWAY Tomorrow's Labs & Rationales: ALLA Ochoa MDJasminachristine 03/07/18 1302: Attending MD Review Statement Attending Statement Attending MD Statement: examined this patient, discuss w/resident/PA/ADJUNCT INSTRUCTOR OF WOMEN'S STUDIES, agreed w/resident/PA/ADJUNCT INSTRUCTOR OF WOMEN'S STUDIES, reviewed EMR data (avail) Attending Assessment/Plan: 62M PMH diabetes with peripheral neuropathy, hypertension, hyperlipidemia admitted with LLQ pain, worse when eating, with sigmoid diverticulitis on imaging and T-wave flattening on EKG. Patient still reports LLQ pain when eating Jello. 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 He denies chest pain, palpitations, fever, chills, nausea, vomiting, dysuria, loose stools. His WBC has improved from 11 to 8. Still with pain, though improving. 1. Acute sigmoid diverticulitis 2. Acute EKG changes Plan - Continue on telemetry - Continue Unasyn - Advance diet as tolerated - Cardiology consult - Continue home medications - DVT PPx
[2018-03-07 08:17] LABS: ABSOLUTE BASOPHIL COUNT 0 /CUMM (0.0-0.2); ABSOLUTE EOSINOPHIL COUNT 0.4 /CUMM (0.0-0.7); ABSOLUTE GRANULOCYTE CT 4.9 /CUMM (1.4-6.5); ABSOLUTE LYMPH COUNT 1.2 /CUMM (1.2-3.4); ABSOLUTE MONOCYTE COUNT 0.6 /CUMM (0.10-0.60); BASOPHIL % 0.6 % (0.0-2.0); GRANULOCYTE % 68.8 % (42.2-75.2); HEMATOCRIT 35.8 % (42-52); MEAN CORPUSCULAR HGB 29.4 PG (27.0-31.0); MEAN CORPUSCULAR HGB CONC 34.8 G/DL (33.0-37.0); MEAN CORPUSCULAR VOLUME 84.6 FL (80.0-94.0); MEAN PLATELET VOLUME 8.8 FL (7.4-10.4); PLATELET COUNT 335 /CUMM (130-400); RBC DISTRIBUTION WIDTH 12.9 % (11.5-14.5); RED BLOOD CELL CT 4.23 /CUMM (4.70-6.10); WHITE BLOOD CELL COUNT 7.1 /CUMM (4.8-10.8)
[2018-03-07 14:00] VITALS: BP 142/82
[2018-03-07 21:55] VITALS: BP 122/64
[2018-03-07 21:57] VITALS: BP 160/84
[2018-03-08 06:55] VITALS: BP 140/70
--- NOTE | 2018-03-08 10:17 | PN- Housestaff ---
Subjective Follow-up For: Diverticulitis Hypokalemia Subjective: Patient seen and examined. He states that he has no more pain and is very eager to leave. He states that he is tolerating food well and has had one soft stool. Patient vitals are stable overnight. His potassium remains low today at 3.4. Review of Systems Constitutional: Reports: no symptoms. Cardiovascular: Reports: no symptoms. Respiratory: Reports: no symptoms. Gastrointestinal: Reports: no symptoms. Genitourinary: Reports: no symptoms. Neurological/Psychological: Reports: no symptoms. Objective Last 24 Hrs of Vital Signs/I&O Vital Signs Date Time Temp Pulse Resp B/P B/P Pulse O2 O2 Flow FiO2 Mean Ox Delivery Rate 03/08 0655 98.1 67 18 140/70 97 Room Air 03/07 2157 98.4 65 18 160/84 96 Room Air Intake & Output 03/08 1600 03/08 0800 03/08 0000 Intake Total 321.5 100 Output Total Balance 321.5 100 Intake, IV 221.5 Intake, Oral 100 100 Patient 195 lb Weight Weight Bed scale Measurement Method Physical Exam General Appearance: Alert, Oriented X3, Cooperative, No Acute Distress Skin Temp/Moisture Exam: Warm/Dry Sepsis Skin Exam (color): Normal for Ethnicity Neck: Supple, No JVD Cardiovascular: Regular Rate, Normal S1, Normal S2, No Murmurs Lungs: Clear to Auscultation, Normal Air Movement Abdomen: Normal Bowel Sounds, Soft, No Tenderness, No Hepatospenomegaly, No Masses Neurological: Normal Speech Current Medications: Current Medications Sig/Ana Start time Last Medication Dose Route Stop Time Status Admin Acetaminophen 500 MG Q6P PRN 03/05 1400 DCD 03/08 PO 0932 Alprazolam 0.25 MG TID PRN 03/06 1400 DCD 03/08 PO 03/13 1359 0837 Amlodipine Besylate 5 MG QPM 08/06 2100 DCD 03/07 PO 2107 Ampicillin Sodium/ 3,000 MG Q6 03/05 1800 DCD 03/08 Sulbactam Sodium IV 0546 Sodium Chloride 100 ML Atorvastatin Calcium 20 MG 1700 08/06 1700 DCD 03/07 PO 1558 Enoxaparin Sodium 40 MG DAILY 03/05 1353 DCD SC Gabapentin 300 MG QPM 08/06 2100 DCD 03/07 PO 2108 Hydromorphone HCl 1 MG Q4P PRN 03/05 1445 DCD 03/07 IV 2108 Insulin Aspart 0 TIDAC 03/06 1700 DCD 03/08 SC 0831 Morphine Sulfate 4 MG Q4P PRN 03/05 1400 DCD 03/08 IV 0049 Zolpidem Tartrate 10 MG QPM 03/05 2100 DCD 03/07 PO 2108 Last 24 Hrs of Lab/Baron Results Last 24 Hrs of Labs/Mics: Laboratory Tests 03/08/18 0622: Anion Gap 7, Estimated GFR > 60, BUN/Creatinine Ratio 7.1 Assessment/Plan Assessment: This is a 62-year-old male with a past medical history significant for diabetes with peripheral neuropathy, hypertension, hyperlipidemia, that was sent in by his PCP Dr. Bernard for complaints of severe abdominal pain, nausea, vomiting, and diarrhea of about 1 week's duration. The patient has never had abdominal issues in the past. He has never had a colonoscopy and has had fecal occult blood testing with his PCP since he was aged 50. He has no family history of gastroenterologic issues. The patient has had a poor appetite for the past week as well and did have a recent fall after he got up too quickly from bed and began descending the stairs. In the ED, vitals were temperature 98.6, heart rate 81, respiratory rate 15, blood pressure 130/80 which increased later to 160/77, 99% oxygen saturation on room air. EKG showed normal sinus rhythm at a rate of 71 with T-wave flattening in all leads. Patient's labs showed a WBC count of 11.7, hemoglobin of 14.3, platelets 404, sodium 128, potassium 2.7, lactic acid normal, troponin 0.02, lipase 503, normal urinalysis. CT abdomen and pelvis showed pancolonic diverticulitis with mild pancreatitis evidence in the tail but low suspicion, diffuse hepatic steatosis, fat-containing left inguinal hernia. In the ED the patient received 1 dose of Toradol 30 mg for the pain, Dilaudid 1 mg, morphine 4 mg 2 doses, a dose of Unasyn 3 g, Zofran 4 mg for his nausea, normal saline 1 L , potassium 50 mEq. Assessment -Nausea, vomiting, diarrhea secondary to pancolonic diverticulitis -T wave flattening secondary to hypokalemia -Past medical history diabetes, hypertension, hyperlipidemia -Hemodilution Plan -Patient is admitted to telemetry for evaluation of his pancolonic diverticulitis and cardiac monitoring in the setting of T-wave flattening -Patient is stable for discharge today, we will discharge him on 7 more days of Augmentin 875 mg twice a day for his diverticulitis -K this morning is 3.4, patient has seen a french weaver and has gotten list of foods that are recommended status post diverticulitis flareup. He has also been encouraged to eat more potassium containing foods. -Hyponatremia has resolved -Defer GI consult for now, no need for follow-up outpatient at this time -Trops neg and EKGs unchanged, no indication of ACS, no events on tele, no cardiac or respiratory symptoms -Continue home medications amlodipine 5 mg, atorvastatin 20 mg, gabapentin 300 mg for neuropathy, zolpidem 10 mg for sleep. -Accu-Cheks and sliding scale insulin -Pain pathway with Tylenol 500 mg every 6 for mild pain, morphine 4 mg every 6 for moderate pain and Dilaudid 1 mg every 4 for severe pain prn -Give patient small doses of 0.25 Xanax for his anxiety, only inpatient -Patient stated that he would like to be DNR/DNI -DVT prophylaxis Problem List: 1. Diverticulitis 2. Acute electrocardiogram changes 3. Hypokalemia Pain Ratin Pain Location: na Pain Goal: Remain pain free Pain Plan: na Tomorrow's Labs & Rationales: na
[2018-03-08] MEDS ORDERED: AUGMENTIN 875-1 EACH PO (10:53)
--- NOTE | 2018-03-08 10:54 | Patient Discharge Instructions ---
Discharge Instructions General Discharge Information You were seen/treated for: DIVERICULITIS Special Instructions: PLEASE FOLLOW UP WITH PCP IN ONE WEEK Diet Continue normal diet: No Recommended Diet: SEE ATTACHMENT FOR SUGGESTED FOODS FOR DIVERTICULITIS Activity Full Activity/No Limits: Yes Acute Coronary Syndrome Inclusion Criteria At DC or during hospital stay patient has or had the following: ACS DIAGNOSIS No Discharge Core Measures Meds if any: Prescribed or Continued at Discharge Meds if any: NOT Prescribed or Continued at Discharge Congestive Heart Failure Inclusion Criteria At DC or during hospital stay patient has or had the following: CHF DIAGNOSIS No Discharge Core Measures Meds if any: Prescribed or Continued at Discharge Meds if any: NOT Prescribed or Continued at Discharge Cerebrovascular accident Inclusion Criteria At DC or during hospital stay patient has or had the following: CVA/TIA Diagnosis No Discharge Core Measures Meds if any: Prescribed or Continued at Discharge Meds if any: NOT Prescribed or Continued at Discharge Venous thromboembolism Inclusion Criteria VTE Diagnosis No VTE Type NONE VTE Confirmed by (Test) NONE Discharge Core Measures - Per Current guidelines, there needs to be overlap - treatment for the first 5 days of Warfarin therapy. - If discharged on Warfarin prior to 5 days of - overlap therapy, the patient will need to be - assessed for post discharge needs including - *Post discharge parental anticoagulation - *Warfarin and/or parental anticoagulation education - *Follow up date to check INR post discharge At least 5 days overlap therapy as Inpatient No Meds if any: Prescribed or Continued at Discharge Note: Overlap Therapy is Warfarin and Anticoagulant Meds if any: NOT Prescribed or Continued at Discharge
--- NOTE | 2018-03-08 10:55 | Discharge Summary ---
Hospital Course Allergies: Coded Allergies: No Known Allergies (03/05/18) Discharge Instructions Medications at Discharge Discharge Medications: Continue taking these medications: Amlodipine Besylate (Amlodipine Besylate) 5 MG TABLET 1 Tablet ORAL Every night Qty = 30 Zolpidem Tartrate (Zolpidem Tartrate) 10 MG TABLET 1 Tablet ORAL Every night Qty = 30 Gabapentin (Gabapentin) 300 MG CAPSULE 1 Capsule ORAL Every night Qty = 30 Metformin HCl (Metformin HCl) 500 MG TABLET 2 Tablet ORAL DAILY Qty = 90 Metformin HCl (Metformin HCl) 500 MG TABLET 1 Tablet ORAL Every night Atorvastatin Calcium (Atorvastatin Calcium) 20 MG TABLET 1 Tablet ORAL DAILY Qty = 8 Start taking the following new medications: Amoxicillin/Potassium Clav (Augmentin 875-125 Tablet) 875 MG-125 MG TABLET 1 Tablet ORAL TWICE DAILY Qty = 14 No Refills
== END 2018-03-08 11:15 | DRG 392 ==
LOC: ERH 09:34 → 1NO 12:35 → ERHI 12:35 → ENRESERV 12:58 → ENTRNSPT 13:38 → EDTRNSPTSTS 13:41 → EDTRNSPT 13:41 → 1NO 13:53 → CMPTRNSPT 14:12 → 1NO 03-06 08:29 → ENPENDDIS 03-08 10:55 → 1NO 03-08 11:15
PROVIDERS: Physician Assistant; Student in an Organized Health Care Education/Training Program
DX: K57.32 Diverticulitis of large intestine without perforation or abscess without bleeding (principal); E87.6 Hypokalemia; E11.42 Type 2 diabetes mellitus with diabetic polyneuropathy; I10 Essential (primary) hypertension; E78.5 Hyperlipidemia, unspecified
CPT/HCPCS: 1NSP; 36592; 74177; 81003; 82436; 87040; 93005; 93010; 96374; 96375; 96376; J1650; J1885; J2405